=== PATIENT | male | born 1975 | race Caucasian/White ===

== ENCOUNTER 2020-04-02 08:34 | Outpatient (CLI) | payer OTHER, SELFPAY ==
--- NOTE | 2020-04-02 08:36 | ECG_ITS ---
Measurements Intervals [place] Rate: 48 P: 35 WA: 166 QRS: 8 QRSD: 112 T: -4 QT: 437 QTc: 393 Interpretive Statements SINUS BRADYCARDIA INTRAVENTRICULAR CONDUCTION DELAY EARLY PRECORDIAL R/S TRANSITION VOLTAGE CRITERIA FOR LVH BORDERLINE ST-T WAVE ABNORMALITY- INFERIOR LEADS ABNORMAL ECG Electronically Signed On 04-02-2020 9:04:00 CDT by Jose Rodriguez D.O.
[2020-04-02 09:16] LABS: Alanine Aminotransferase 64 U/L (4-50); Albumin Level 4.9 g/dL (3.5-5.1); Alkaline Phosphatase 57 U/L (38-126); Amylase 63 U/L (30-110); Aspartate Amino Transferase 50 U/L (17-59); Bilirubin,Total 0.6 mg/dL (0.2-1.3); Lipase 185 U/L (23-300)
== END 2020-04-02 08:35 | disposition home or self-care (01) ==
PROVIDERS: PCP Internal Medicine; Visit Provider Surgery
DX: Z01.818 Encounter for other preprocedural examination (principal); E78.00 Pure hypercholesterolemia, unspecified; K81.1 Chronic cholecystitis; R94.31 Abnormal electrocardiogram [ECG] [EKG]
CPT/HCPCS: 36415; 80076; 82150; 83690; 86850; 86900; 86901; 93005

== ENCOUNTER 2020-04-09 00:55 | Outpatient (CLI) | payer OTHER, SELFPAY ==
[2020-04-09 18:07] LABS: SARS-CoV-2 RNA PCR Negative
== END 2020-04-09 00:56 | disposition home or self-care (01) ==
LOC: ANHCOVIDDT 00:55
PROVIDERS: PCP Internal Medicine; Visit Provider Surgery
DX: Z01.818 Encounter for other preprocedural examination (principal); Z11.59 Encounter for screening for other viral diseases
CPT/HCPCS: 87635; C9803; U0003

== ENCOUNTER 2020-04-11 02:24 | Day surgery (SDC) | payer OTHER, SELFPAY ==
[2020-04-01 09:38] VITALS: BMI 38.0
[2020-04-11] VITALS (8 sets, daily range): BP systolic 104–136; BP diastolic 51–76; PULSE 44–58; RESP 12–20; TEMP 36.4; O2SAT 96–100
--- NOTE | 2020-04-11 08:36 | WPDHPUPDATE1 ---
History and Physical Update Update Date/Time: 04/11/20 08:36 History and Physical has been reviewed, including an updated exam of the patient. There are NO changes in the patient's condition. Risks, benefits, and alternatives have been discussed and questions answered. Patient agrees to proceed with procedure.
[2020-04-11] MEDS: LACTATED RINGERS 1,000 ML 30 ML IV CONT ×2 (08:40→10:30)
--- NOTE | 2020-04-11 08:50 | WPDANESEPPF ---
Anes - Initial Pre Proc Eval Procedure: Operation Date: 04/11/20 10:00 Proposed Procedures p Laparoscopic Cholecystectomy - Kingston Ervin MD Date/Time: 04/11/20 08:50 Surgeon: Kingston Ervin MD Pre Op Diagnosis: Chronic Cholecystitis Patient Data Age: 44 Gender: M Height: 5 ft 8 in Weight: 113.4 kg Allergies Allergy/AdvReac Type Severity Reaction Status Date / Time bee venom protein (honey bee) Allergy SEVERE Verified 04/01/20 09:38 SWELLING Home Medications Medication Instructions Recorded Confirmed Type rosuvastatin 5 mg sprinkle capsule 10 mg PO DAILY 03/17/20 04/11/20 History esomeprazole magnesium [Nexium] 20 mg PO DAILY 04/01/20 04/11/20 History Patient hx anesthesia problems: none Family hx anesthesia problems: hx of malignant hyperthermia PMFSH Past Medical History Medical History GERD (gastroesophageal reflux disease) High cholesterol AMISHA (obstructive sleep apnea) Surgical History Surgical History H/O lateral meniscus repair of left knee Family History Family History Father High cholesterol Mother Kidney stones Diabetes mellitus Sibling S/P cholecystectomy Other Malignant hyperthermia Social History Social History Smoking status: Former smoker Smokeless tobacco user: chewing tobacco Additional smoking assessment comments: QUIT 16 YEARS AGO- USED FOR 10 YEARS Alcohol intake: current Drinks per week: 4 Spiritual care concerns: No Anes - Eval Final PreProcedure Day of Procedure 04/11/20 08:50 Patient weight: obese Heart: regular rate and rhythm Lungs: clear to auscultation Airway: Mallampati scale class 1 Neurological: alert and oriented Last oral intake: >/= 8 hours ASA classification: III Emergent: no Anesthetic plan: proceed Anesthesia type and monitoring: general ETT and standard monitoring Informed Consent: The patient's anesthetic plan and its attendant risks and benefits were discussed with the patient/family/POA. Questions were solicited and answers provided to the satisfaction of the patient/family/POA.
[2020-04-11] MEDS: KETOROLAC 15 MG/ML VIAL (*BKC) IV PUSH (09:06)
[2020-04-11] MEDS: ceFAZolin 2 GM/D5W 50 ML 2 GM/50 ML BAG IVPB (09:11)
[2020-04-11] MEDS: BUPIVACAINE/EPINEPHRINE 0.5% 30 ML VIAL INFILTRATE (09:41)
--- NOTE | 2020-04-11 10:28 | P.OP_ITS ---
Procedure Note - Detailed Date of procedure: 04/11/20 Pre-op diagnosis: Chronic Cholecystitis Acalculous chronic cholecystitis Post-op diagnosis: same Procedure performed: Laparoscopic cholecystectomy Description of procedure: The patient was taken to surgery and induced into general anesthesia. The abdomen was prepped and draped. Trocars were placed in the usual fashion using 0.5% Marcaine with epinephrine and applied Medical optical trocars. A 5 millimeter camera was used. The gallbladder was decompressed with a laparoscopic aspirator. The cholecystotomy was closed with a Vicryl endo-loop. The gallbladder was retracted anterosuperiorly. Traction was placed on the infundibulum. The cystic duct and cystic artery were dissected out very clearly. The gallbladder was dissected off the liver at its lower 3rd. Critical view was achieved. We securely clipped and divided the cystic duct and cystic artery. The gallbladder was then further retracted so that the peritoneal attachments to the liver could be divided. Once the gallbladder was freed entirely, it was placed in an Endo-Catch bag and retrieved through the 10 11 epigastric trocar site. The epigastric trocar was then replaced. We reviewed the right upper quadrant. It was irrigated and suctioned. All looked good with no evidence of bleeding or bile leakage. We evacuated CO2 and removed the trocar sleeves. Skin wounds were closed with subcuticular 4 O Monocryl skin suture. The wounds were dressed with Exofin surgical adhesive. Patient was awakened and taken to recovery in good condition. Sponge and needle counts were correct x2. Anesthesia: GETA and local (0.5% Marcaine with epinephrine) Surgeon: Kingston Ervin MD Efficiency Analyst: Miriam ROBLERO Estimated blood loss (mL): 10 Drains: No Packing: No Pathology: yes (Gallbladder) Complications: None Condition: stable Disposition: PACU Findings: Mild chronic inflammation, no gallstones noted. No biliary ductal dilatation, no liver abnormalities.
--- NOTE | 2020-04-11 13:04 | SUR.PHASEII ---
1245; PT AWAKE AND ALERT. DENIES PAIN OR NAUSEA. STATES HE IS READY TO GO HOME. SPOUSE NOTIFIED.
== END 2020-04-11 13:04 | disposition home or self-care (01) ==
PROVIDERS: PCP Internal Medicine; Visit Provider Surgery
PROC: 0FT44ZZ Resection of Gallbladder, Percutaneous Endoscopic Approach (ICD-10-PCS; CPT 47562; principal; 2020-04-11 10:00)
DX: K81.1 Chronic cholecystitis (principal); K21.9 Gastro-esophageal reflux disease without esophagitis; E78.00 Pure hypercholesterolemia, unspecified; G47.33 Obstructive sleep apnea (adult) (pediatric); Z87.891 Personal history of nicotine dependence; E66.9 Obesity, unspecified; Z68.37 Body mass index [BMI] 37.0-37.9, adult
CPT/HCPCS: 47562; 88304; C1713; J0690; J1100; J1170; J1885; J2250; J2405; J2704; J2710; J3010; J7120

== ENCOUNTER 2022-08-02 00:47 | Day surgery (SDC) | payer OTHER, SELFPAY ==
[2022-07-21 13:58] VITALS: BMI 36.1
[2022-08-02 07:07] VITALS: BP 124/73; PULSE 55; RESP 18; TEMP 36.1; O2SAT 98
[2022-08-02] MEDS: LACTATED RINGERS 1,000 ML 150 ML IV CONT (07:22)
--- NOTE | 2022-08-02 07:26 | P.PNAN_ITS ---
Anes - Initial Pre Proc Eval Procedure: Operation Date: 08/02/22 08:15 Proposed Procedures p Screening Colonoscopy - Troy Juan MD Date/Time: 08/02/22 07:26 Surgeon: Troy Juan MD Pre Op Diagnosis: screening colonoscopy, fm hx of colon polyps Patient Data Age: 46 Gender: M Height: 1.75 m Weight: 109.8 kg Last Vital Signs Temp 36.1 C L 08/02/22 07:07 Pulse 55 L 08/02/22 07:07 Resp 18 08/02/22 07:07 BP 124/73 08/02/22 07:07 Pulse Ox 98 08/02/22 07:07 O2 Del Method Room Air 08/02/22 07:07 Allergies Allergy/AdvReac Type Severity Reaction Status Date / Time bee venom protein (honey bee) Allergy SEVERE Verified 08/02/22 07:06 SWELLING Home Medications Medication Instructions Recorded Confirmed Type esomeprazole magnesium 20 mg 20 mg PO DAILY 04/01/20 07/21/22 History capsule,delayed release (Nexium) rosuvastatin 10 mg tablet 10 mg PO DAILY 07/21/22 07/21/22 History Patient hx anesthesia problems: none Family hx anesthesia problems: none Results Review: All pre-operative results and documents have been reviewed as part of the pre- operative evaluation. [facility] Past Medical History Medical History Colonoscopy planned Family history of colonic polyps GERD (gastroesophageal reflux disease) High cholesterol IFG (impaired fasting glucose) AMISHA (obstructive sleep apnea) Vitamin B12 deficiency Vitamin D deficiency Surgical History Surgical History H/O lateral meniscus repair of left knee Hx laparoscopic cholecystectomy 04/11/20 Family History Family History Father High cholesterol Mother Kidney stones Diabetes mellitus Sibling S/P cholecystectomy Other Malignant hyperthermia Social History Social History Smoking packs per day: 0.5 Smoking cigarettes per day: 10.0 Years smoked: 3 Smoking pack-years: 1.50 Smoking status: Former smoker Tobacco type: cigarettes Smokeless tobacco user: chewing tobacco Additional smoking assessment comments: QUIT 16 YEARS AGO- USED FOR 10 YEARS Alcohol intake: current Drinks per week: 4 Substance use: never Substance use type: does not use Living arrangements: with family Spiritual care concerns: No Anes - Eval Final PreProcedure Day of Procedure 08/02/22 07:26 Patient weight: obese Heart: regular rate and rhythm Lungs: clear to auscultation Airway: Mallampati scale class 1 Neurological: alert and oriented ASA classification: III Emergent: no Anesthetic plan: proceed Anesthesia type and monitoring: general GIVS and standard monitoring Results Review: All pre-operative results and documents have been reviewed as part of the pre- operative evaluation. Informed Consent: The patient's anesthetic plan and its attendant risks and benefits were discussed with the patient/family/POA. Questions were solicited and answers provided to the satisfaction of the patient/family/POA.
--- NOTE | 2022-08-02 07:55 | PM.HPGS ---
History of Present Illness History of Present Illness Consent: Risks, benefits, and alternatives have been discussed and questions answered. Patient agrees to proceed with procedure. Chief complaint: screening colonoscopy, fm hx of colon polyps Narrative: Jose Rashid is a 46 year old male here for first screening colonoscopy Review of Systems Constitutional: Constitutional: Denies headache(s) and Denies weakness Eyes: Eyes: Denies blurry vision ENT: Reports Normal hearing present, Denies headache(s) and Denies neck pain Cardiovascular: Cardiovascular: Denies chest pain and Denies dyspnea Respiratory: Respiratory: Denies dyspnea Gastrointestinal: Gastrointestinal: Reports no additional gastrointestinal complaints Genitourinary: Genitourinary: Denies dysuria Musculoskeletal: Musculoskeletal: Denies neck pain Integumentary/Breasts: Skin/Breast: Denies dry skin Neurologic: Reports Normal hearing present, Denies headache(s) and Denies weakness Psychiatric: Psychiatric: Denies anxiety Endocrine: Endocrine: Denies change in body appearance Hematologic/Lymphatic: Hematologic/Lymphatic: Denies easy bleeding Allergic/Immunologic: Allergic/Immunologic: Denies urticaria PMF Past Medical History Medical History (Updated 08/02/22 @ 07:56 by Troy Juan MD) Colon cancer screening Colonoscopy planned Family history of colonic polyps GERD (gastroesophageal reflux disease) High cholesterol IFG (impaired fasting glucose) AMISHA (obstructive sleep apnea) Vitamin B12 deficiency Vitamin D deficiency Surgical History Surgical History H/O lateral meniscus repair of left knee Hx laparoscopic cholecystectomy 04/11/20 Family History Family History Father High cholesterol Mother Kidney stones Diabetes mellitus Sibling S/P cholecystectomy Other Malignant hyperthermia Social History Social History Smoking packs per day: 0.5 Smoking cigarettes per day: 10.0 Years smoked: 3 Smoking pack-years: 1.50 Smoking status: Former smoker Tobacco type: cigarettes Smokeless tobacco user: chewing tobacco Additional smoking assessment comments: QUIT 16 YEARS AGO- USED FOR 10 YEARS Alcohol intake: current Drinks per week: 4 Substance use: never Substance use type: does not use Living arrangements: with family Spiritual care concerns: No Meds Home Medications and Allergies Home Medications Medication Instructions Recorded Confirmed Type esomeprazole magnesium 20 mg 20 mg PO DAILY 04/01/20 07/21/22 History capsule,delayed release (Nexium) rosuvastatin 10 mg tablet 10 mg PO DAILY 07/21/22 07/21/22 History Allergies Allergy/AdvReac Type Severity Reaction Status Date / Time bee venom protein (honey bee) Allergy SEVERE Verified 08/02/22 07:06 SWELLING Vital Signs Vital Signs - 24 hr 08/02/22 07:07 Temperature 97 F L Pulse Rate 55 L Respiratory Rate 18 Blood Pressure 124/73 Pulse Oximetry 98 Oxygen Delivery Room Air Exam Const: General: comfortable and no acute distress HENMT: Face/Nose/Sinus: Normal nares present Eyes: General: appearance normal, both eyes and all related structures Neck: Neck: no JVD Resp: Auscultation: clear to auscultation bilaterally Cardio: Rate: regular rate Rhythm: regular rhythm GI: Inspection: non-distended GI Palp: Yes Soft to palpation Skin: General skin exam: normal color Neuro: General: gait normal Speech: normal speech Extrem: General: normal to inspection Psych: Mental Status: mental status grossly normal Assessment and Plan Assessment and plan (1) Colon cancer screening: Code(s): Z12.11 - Encounter for screening for malignant neoplasm of colon Status: Acute Assessment and Plan: colonoscopy
[2022-08-02 08:18] VITALS: BP 119/71; PULSE 57; RESP 18; O2SAT 100
[2022-08-02 08:28] VITALS: BP 131/82; PULSE 53; RESP 20; O2SAT 98
[2022-08-02 08:38] VITALS: BP 134/75; PULSE 49; RESP 15; O2SAT 100
== END 2022-08-02 08:48 | disposition home or self-care (01) ==
PROVIDERS: PCP Family Medicine; Visit Provider Internal Medicine Gastroenterology
PROC: 0DJD8ZZ Inspection of Lower Intestinal Tract, Via Natural or Artificial Opening Endoscopic (ICD-10-PCS; CPT 45378; principal; 2022-08-02 08:15)
DX: Z12.11 Encounter for screening for malignant neoplasm of colon (principal); Z83.71 Family history of colonic polyps; E78.00 Pure hypercholesterolemia, unspecified; K21.9 Gastro-esophageal reflux disease without esophagitis; Z87.891 Personal history of nicotine dependence; E66.9 Obesity, unspecified; Z68.35 Body mass index [BMI] 35.0-35.9, adult
CPT/HCPCS: 45378; J2704; J7120

== ENCOUNTER 2024-01-26 13:15 | Outpatient (RCR) | payer OTHER, SELFPAY ==
--- NOTE | 2024-01-26 14:11 | PTOPEVAL1 ---
Assessment and note entered by Misty Mayer, PT Evaluation Information Assessment Status Evaluation Diagnosis pain in right knee, osteoarthritis right knee Onset ~ 1 year Subjective Information Pt states right knee feels like a torn meniscus he had in the left knee 2006-. Was repaired. Right knee started bothering him a little over a year ago and progressively got worse. 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 Pt reports prior to a year ago would hike and jog, vacation to [place] went hiking for multiple days Is currently limited to mowing because of knee pain 6 weeks ago received steroid shot in the knee without improvement Reported Pain Level Pain Score 0: Self Report Assessment PT Clinical Summary Pt presents with complaints of right knee pain that began about a year ago without traumatic event and progressively worsened. Pt received steroid shot approx 6 weeks ago without reduction of discomfort. Pt demo's fair alignment in standing with mild genu recurvatum krishna, good strength, good flexibility, mildly limited ROM right knee due to pain, no swelling, mild tenderness to medial joint line and multiple (+) special tests suggestive of meniscus injury. Currently pt demo's minimal deficits which therapy may improve slightly. However pt would greatly benefit from further imaging to confirm or deny anatomical deficits to discern most effective plan of care to improve patient's discomfort and function for high level activities. Plan of Care Interventions Electrical Stimulation,Hot Pack/Cold Pack,Manual Therapy,Neuro Re-education,Therapeutic Activities, Therapeutic Exercise,Self-Care/Home Management, Ultrasound PT Services Indicated Yes Treatment Frequency and 10 visits as needed over 90 days Duration These treatments will address the objective and functional deficits as defined above. The patient will be advanced safely and appropriately in order for the patient to progress towards his/her prior level of function. Additional exercis
--- NOTE | 2024-01-26 14:11 | OPREHPOC ---
Outpatient Therapy Plan of Care This is a Multidisciplinary Plan of Care that may contain components documented by all disciplines (PT, OT, and ST.) PT Goal 1 Goal Pt will be independent in HEP Pt will verbalize understanding of diagnosis and prognosis Target Visit 5 PT Problem 2 PT Problem #2 Pain PT Goal 1 Goal Pt will report greatest pain level at 3/10 or less to improve ADLs and activities Target Visit 5 PT Goal 2 Goal Pt will report resolution of pain to return to PLOF Target Visit 10 PT Problem 3 PT Problem #3 Impaired Range of Motion PT Goal 1 Goal Pt will demo equal knee flexion RLE to LLE without pain Target Visit 10
--- NOTE | 2024-02-24 13:05 | PCPTNOTE ---
Admitting Provider: Attending Provider: Devante Nettles MD Patient:Jose Rashid Date of :1975 Patient has not returned for any further treatments since 01/26/2024, therefore he will be discharged at this time. Patient?s initial visit was on 01/26/2024 13:15 and he had a total of 1 visits. At the time it was found he most likely had a meniscal tear that therapy would be minimally effective for. His plan of care had been left open in case he felt the need to return prior to intervention. However as he has not returned, we are discharging from skilled services. Thank you for referring this patient to [facility]. Please review, sign, date and return this discharge summary DAYAN. I have been updated about the patient's current status and I agree with discharge from the above service at this time. Referring Physician Date
== END 2024-02-24 14:03 | disposition home or self-care (01) ==
LOC: ANHHIPT 13:15
PROVIDERS: PCP Family Medicine; Visit Provider Family Medicine
DX: M17.11 Unilateral primary osteoarthritis, right knee (principal)
CPT/HCPCS: 97161

== ENCOUNTER 2024-05-14 07:44 | Outpatient (CLI) | payer OTHER, SELFPAY ==
--- NOTE | ~2024-05-14 | MR_ITS ---
EXAMINATION: MR knee RT wo con DATE: 05/14/2024 08:11 INDICATION: Right knee pain. TECHNIQUE: Magnetic resonance imaging (MRI) of the right knee was performed without intravenous contr ast. Sequences included axial PD-weighted FS FSE, coronal PD-weighted FSE and PD-weighted FS FSE, sag ittal PD-weighted FSE, and sagittal T2-weighted FS FSE. COMPARISON: Right knee radiographs 01/17/2024 FINDINGS: Medial compartment: There is a horizontal tear of body and posterior horn of medial meniscus. There is cartilage surface irregularity of tibial condyle and femoral condyle. Lateral compartment: Lateral meniscus is normal. Lateral compartment cartilage is normal. Patellofemoral compartment: There is cartilage surface irregularity of patella and trochlea. Ligaments and tendons: The anterior and posterior cruciate ligaments are normal. Medial collateral ligament is normal. There are changes of prior sprain of fibular collateral ligament characterized by thickening and increased signal intensity proximally. There is mild patellar tendinopathy. Fluid: There is a small knee joint effusion. There is mild prepatellar and superficial infrapatellar bursiti s. There is trace fluid in a Pathak's cyst. IMPRESSION: 1. Mild chondrosis of medial and patellofemoral compartments. 2. Tear of medial meniscus. 3. Small knee joint effusion. Reviewed, dictated and finalized at location A.
== END 2024-05-14 07:45 ==
LOC: MICIMG 07:45
PROVIDERS: PCP Family Medicine; Visit Provider Family Medicine
DX: M94.261 Chondromalacia, right knee (principal); M25.461 Effusion, right knee; S83.241A Other tear of medial meniscus, current injury, right knee, initial encounter; X58.XXXA Exposure to other specified factors, initial encounter
CPT/HCPCS: 73721

== ENCOUNTER 2024-07-10 09:15 | Outpatient (CLI) | payer OTHER, SELFPAY ==
--- NOTE | 2024-07-10 09:26 | ECG_ITS ---
Test Date: 2024-07-10 09:30:44 Measurements Intervals [place] Rate: 64 P: 26 FL: 186 QRS: 4 QRSD: 96 T: -11 QT: 402 QTc: 417 Interpretive Statements SINUS RHYTHM NORMAL ELECTROCARDIOGRAM No previous ECG available for comparison Electronically Signed On 07-11-2024 06:58:25 CDT by Carlton Stinson M.D.
== END 2024-07-10 09:16 | disposition home or self-care (01) ==
LOC: ANHSURGERY 09:20
PROVIDERS: PCP Family Medicine; Visit Provider Orthopaedic Surgery
DX: Z01.810 Encounter for preprocedural cardiovascular examination (principal); E78.00 Pure hypercholesterolemia, unspecified
CPT/HCPCS: 93005

== ENCOUNTER 2024-07-16 00:29 | Day surgery (SDC) | payer OTHER, SELFPAY ==
[2024-07-06 13:10] VITALS: BMI 35.8
--- NOTE | 2024-07-06 13:17 | PC.NURSE ---
Report to the Outpatient Waiting Room, entrance under the green pavilion located off [facility], at time _1300_ on date _07/16/24_. Planned Procedure Time: _1500_.? Time changes happen often and if your time is changed the preop area will call you the afternoon before. - You and your visitor will be asked to self-screen and do not enter if you have any COVID symptoms. Please call surgeon if you need to reschedule. - A mask is optional within the hospital at this time. Patients may have clear liquids (water, carbonated beverages, clear teas, apple juice) until 3 hours prior to surgery with a maximum of 20 ounces. - No food from midnight until time of surgery and no smoking - Infants may have breast milk until 4 hours before surgery, infant formula 6 hours prior to surgery. - Children will be allowed to drink immediately following surgery.? If applicable, please bring a bottle or sippy cup to assist with drinking. Juice, water, soda, and popsicles are readily available.? For infants on formula, please bring formula the day of surgery.? Pacifiers are allowed. Take only the following medications with a SIP of water on the morning of surgery: NONE DO NOT STOP ANY OF YOUR OTHER PRESCRIPTION MEDICATIONS PRIOR TO SURGERY EXCEPT THE FOLLOWING Medications to discontinue per physician PROBIOTIC THREE DAYS PRIOR TO SURGERY, STOP SEMAGLUTIDE NOW__ Date to take last dose Please no make-up, nail austrian, hairspray, perfume, deodorant, or body powder the day of surgery.? No jewelry (including any body piercings) or valuables the day of surgery, leave them at home.? Please take a shower or bath the night before, or the morning of, surgery with an antibacterial soap.? Wear comfortable, loose fitting clothing.? Children are encouraged to wear pajamas. - Jewelry must be removed prior to entering the operating room.? Rings and piercings that are not removed may be cut off. - The hospital will not accept responsibility for valuables.? - Please leave all valuables, including medications, at home the day of surgery. If you are going home after surgery, a licensed paratransit driver must drive you home.? - NO public transportation without another adult if you receive anesthesia. - We recommend that an adult stay with you for 24 hours following discharge. - We also recommend that you do not drive, make important decision, drink alcoholic beverages, or take any drugs that were not prescribed by your health care provider for at least 24 hours after your discharge time. For Pediatric surgeries, we recommend two adults accompany the child home. Follow any additional instructions given to you from your surgeon. Telephone instructions given to PATIENT_and asked if any additional questions and then verbalized understanding. Patient advised to call surgeon office or pre surgery nurse liaison [phone] if any additional questions.
[2024-07-16] VITALS (11 sets, daily range): BP systolic 86–159; BP diastolic 48–85; PULSE 54–76; RESP 14–20; TEMP 36.4–36.6; O2SAT 95–100
--- NOTE | 2024-07-16 11:40 | WPDHPUPDATE1 ---
History and Physical Update Update Date/Time: 07/16/24 11:40 History and Physical has been reviewed, including an updated exam of the patient. There are NO changes in the patient's condition. Risks, benefits, and alternatives have been discussed and questions answered. Patient agrees to proceed with procedure.
[2024-07-16] MEDS: KETOROLAC 15 MG/ML VIAL (*BKC) IV PUSH (13:40)
[2024-07-16] MEDS: ACETAMINOPHEN 500 MG TABLET 1000 MG PO (13:40)
[2024-07-16] MEDS: LACTATED RINGERS 1,000 ML 30 ML IV CONT ×2 (13:40→16:04)
--- NOTE | 2024-07-16 14:06 | P.PNAN_ITS ---
Anes - Initial Pre Proc Eval Procedure: Operation Date: 07/16/24 15:00 Proposed Procedures p Right Knee Arthroscopic Partial Medial Meniscectomy - Casa Conrad MD Date/Time: 07/16/24 14:06 Surgeon: Casa Conrad MD Pre Op Diagnosis: Right Knee Meniscal Tear Patient Data Age: 48 Gender: M Height: 1.75 m Weight: 110.2 kg Last Vital Signs Temp 36.6 C 07/16/24 13:40 Pulse 64 07/16/24 13:40 Resp 14 07/16/24 13:40 BP 159/78 H 07/16/24 13:40 Pulse Ox 99 07/16/24 13:40 O2 Del Method Room Air 07/16/24 13:40 Allergies Allergy/AdvReac Type Severity Reaction Status Date / Time bee venom protein (honey bee) Allergy SEVERE Verified 07/04/24 14:56 SWELLING Home Medications Medication Instructions Recorded Confirmed Type semaglutide 1 mg/dose (4 mg/3 mL) 1 mg (0.75 mL) subcut WEEKLY #3 mL 10/26/23 07/06/24 Rx subcutaneous pen injector rosuvastatin 10 mg tablet See Rx Instructions .Route 03/26/24 07/06/24 Rx .COMPLEX #90 tabs lactobacillus combination no.8 3 1 cell PO DAILY 07/06/24 07/06/24 History billion cell capsule Patient hx anesthesia problems: none Family hx anesthesia problems: none Results Review: All pre-operative results and documents have been reviewed as part of the pre- operative evaluation. [facility] Past Medical History Medical History Annual physical exam Chronic cholecystitis Family history of colonic polyps GERD (gastroesophageal reflux disease) High cholesterol IFG (impaired fasting glucose) Left lateral epicondylitis AMISHA (obstructive sleep apnea) Osteoarthritis of right knee Right knee pain Screening for prostate cancer Vitamin B12 deficiency Vitamin D deficiency Surgical History Surgical History H/O lateral meniscus repair of left knee Hx laparoscopic cholecystectomy 04/11/20 Family History Family History Father High cholesterol Mother Kidney stones Diabetes mellitus Sibling S/P cholecystectomy Other Malignant hyperthermia Social History Social History Smoking packs per day: 0.5 Smoking cigarettes per day: 10.0 Years smoked: 6 Smoking pack-years: 3.00 Smoking status: Former smoker Tobacco type: cigarettes Smokeless tobacco user: chewing tobacco Additional smoking assessment comments: 2005- CAN OF CHEW PER DAY Alcohol intake: current Drinks per week: 6 Substance use: never Substance use type: does not use Living arrangements: with family Spiritual care concerns: No Anes - Eval Final PreProcedure Day of Procedure 07/16/24 14:06 Patient weight: obese Heart: regular rate and rhythm Lungs: clear to auscultation Airway: Mallampati scale class II Neurological: alert and oriented Last oral intake: >/= 8 hours ASA classification: III Emergent: no Anesthetic plan: proceed Anesthesia type and monitoring: general GIVS and standard monitoring Results Review: All pre-operative results and documents have been reviewed as part of the pre- operative evaluation. Informed Consent: The patient's anesthetic plan and its attendant risks and benefits were discussed with the patient/family/POA. Questions were solicited and answers provided to the satisfaction of the patient/family/POA.
[2024-07-16] MEDS: ceFAZolin 2 GM/D5W 50 ML 2 GM/50 ML BAG IVPB (14:45)
[2024-07-16] MEDS: BUPIVACAINE/EPINEPHRINE 0.5% 50 ML VIAL 20 ML INFILTRATE (15:23)
--- NOTE | 2024-07-16 15:47 | W.PM.PROC2 ---
Procedure Note - Detailed Date of Procedure 07/16/24 Pre-op Diagnosis Right Knee Medial Meniscal Tear Post-op Diagnosis Same Procedure Performed Arthroscopic partial medial meniscectomy, right knee. Surgeon Casa Conrad MD Anesthesia General Findings Complex posterior medial tear. Horizontal cleavage component preserved as able. Medial femur chondromalacia grade 1, medial tibia grade 0. Lateral femur chondromalacia grade 0, lateral tibia grade 0. Patellar grade 0, trochlea grade 0. Description of Procedure The patient was identified and the surgical site confirmed and signed in the preoperative holding area. Antibiotics were started per protocol, and the patient was brought to the operative room and transferred to the OR table. A general anesthetic was administered. Supine position with the operative lower extremity position in the leg deng after placement of a well padded tourniquet. The leg support was lowered and the contralateral limb was supported with a soft bolster. The knee was prepped and draped in the usual sterile fashion. A time-out was performed. The portal sites were marked and infiltrated with 0.5% Marcaine 20 mL. The limb was exsanguinated and the tourniquet inflated to 300 mL Hg. Standard inferolateral and inferomedial portals were established. Inflow was obtained with the saline pump. The camera was introduced. Diagnostic inspection of the joint was accomplished. The meniscus was debrided with the arthroscopic shaver and punches until stable. The radiofrequency probe was also used for further d?bridement. The arthroscopic instruments were removed. The tourniquet released and wounds closed with subcutaneous 4-0 Monocryl absorbable suture. Steri strips and a sterile dressing were applied. A light elastic wrap was placed. The patient was extubated and brought to the recovery room in stable condition. Estimated Blood Loss 5 Drains No Complications No immediate complications Condition Stable Disposition PACU [facility] Billing Surgery - Charge Forward: Surgery Billing
[2024-07-16] MEDS: oxyCODONE HCL (*CRX) 5 MG TAB IR PO (17:00)
== END 2024-07-16 17:52 | disposition home or self-care (01) ==
PROVIDERS: PCP Family Medicine; Visit Provider Orthopaedic Surgery
PROC: (CPT 29870; principal; 2024-07-16 15:00)
DX: S83.231A Complex tear of medial meniscus, current injury, right knee, initial encounter (principal); M94.261 Chondromalacia, right knee; K21.9 Gastro-esophageal reflux disease without esophagitis; K81.1 Chronic cholecystitis; E78.00 Pure hypercholesterolemia, unspecified; G47.33 Obstructive sleep apnea (adult) (pediatric); M17.11 Unilateral primary osteoarthritis, right knee; E53.8 Deficiency of other specified B group vitamins; E55.9 Vitamin D deficiency, unspecified; E66.9 Obesity, unspecified; Z68.35 Body mass index [BMI] 35.0-35.9, adult; Z79.85 Long-term (current) use of injectable non-insulin antidiabetic drugs; Z98.890 Other specified postprocedural states; Z90.49 Acquired absence of other specified parts of digestive tract; Z87.891 Personal history of nicotine dependence; Z83.719 Family history of colon polyps, unspecified; Z84.89 Family history of other specified conditions; X58.XXXA Exposure to other specified factors, initial encounter
CPT/HCPCS: 29881; 93005; A9270; J0690; J1100; J1171; J1885; J2003; J2250; J2405; J2704; J3010; J7120

== ENCOUNTER 2024-08-16 10:15 | Outpatient (RCR) | payer OTHER, SELFPAY ==
--- NOTE | 2024-07-24 14:38 | PTOPEVAL1 ---
Assessment and note entered by Sameera Herrera, PT Evaluation Information Assessment Status Evaluation Diagnosis z48.89 ICD-10 Condition Codes (PT) M25.561,Difficulty Walking R26.2,R26.9,Weakness R53.1,Z47.89 Onset many years ago Subjective Information Pt reports has been experiencing worsening of R knee pain for approx 10 years and finally decided to see the MD earlier this year, he received cortisone shot to the knee and was referred to therapy. Upon PT evaluation, pt was referred to Ortho secondary to a meniscal tear. Pt underwent surgery last Tuesday and reports feels increased pain and stiffness the past few days and had difficulty walking. He is currently using a crutch that his used from before to offload weight to the R knee. states uses Ibuprofen and ice to relieve pain at this time. Pt wants to be able to stand and walk normally, and go back to work without pain and dicomfort. Plan of Care Interventions Electrical Stimulation,Gait Training,Hot Pack/Cold Pack,Manual Therapy,Neuro Re-education,Patient/ Caregiver Education,Therapeutic Activities, Therapeutic Exercise,Ultrasound,Other Other Interventions Angelica, MARIALUISA PT Services Indicated Yes Treatment Frequency and 2x/wk x 12 visits Duration These treatments will address the objective and functional deficits as defined above. The patient will be advanced safely and appropriately in order for the patient to progress towards his/her prior level of function. Additional exercises will be introduced and as well as a comprehensive home exercise program upon discharge, if needed, ?to ensure carryover of functional gains achieved in the clinic. This treatment plan has been reviewed and agreement upon by the patient.
--- NOTE | 2024-07-24 14:38 | OPREHPOC ---
Outpatient Therapy Plan of Care This is a Multidisciplinary Plan of Care that may contain components documented by all disciplines (PT, OT, and ST.) PT Problem 1 PT Problem #1 Knowledge Deficit PT Goal 1 Goal / Goal Update 1.Pt will demo good understanding of diagnosis and prognosis. 2. Pt will perform HEPs to improve knee strength and stability, flexibility indep Target Visit 12 PT Problem 2 PT Problem #2 Pain PT Goal 1 Goal / Goal Update Pt will report a pain score of 2-3/10 at worst when standing and ambulating. Target Visit 10 PT Problem 3 PT Problem #3 Impaired Range of Motion PT Goal 1 Goal / Goal Update 1. Pt will demo 0-100 deg or more of passive ROM to L knee within 6-8 visits to allow improved joint mobility. 2. Pt will demo 0-115 deg or more active ROM to L knee without increased pain or discomfort at end of therapy visits to improve safety with stairs ambulation and transfers transition. Target Visit 18 PT Problem 4 PT Problem #4 Impaired Strength PT Goal 1 Goal / Goal Update Pt will demo 5/5 strength to the muscles around L knee. Target Visit 20 PT Problem 5 PT Problem #5 Impaired Functional Mobil PT Goal 1 Goal / Goal Update 1. Pt will demo normalized gait pattern with good LLE gait mechanics indep without using assistive device on various surfaces and stairs. 2. Pt will demo a score of 60 or more on LEFs indicating minimal disability. 3. Pt will demo single leg standing for 15 seconds or more each LE without discomfort. Target Visit 20
--- NOTE | 2024-08-16 11:01 | PTOPDC ---
Assessment and note entered by Sameera Herrera, PT Discharge Information Assessment Status Discharge Diagnosis z48.89 ICD-10 Condition Codes (PT) M25.561,Difficulty Walking R26.2,R26.9,Weakness R53.1,Z47.89 Onset many years ago Subjective Information Pt reports he is not feeling any pain and is back to normal motions. Reported Pain Level Pain Score 0: Self Report Assessment PT Clinical Summary PT received a total of 6 visits and has met all of his established goals. He demos full ROM without pain or discomfort, excellent progress and improvement is noted to his mobility and strength from eval to this date. He reports compliant with HEPs and is planning to return to work out program pre-surgery. Skilled PT not necessary at this time. Plan of Care PT Services Indicated No
== END 2024-08-17 10:56 | disposition home or self-care (01) ==
LOC: ANHHIPT 10:15
PROVIDERS: PCP Family Medicine; Visit Provider Orthopaedic Surgery
DX: Z48.89 Encounter for other specified surgical aftercare (principal); M25.561 Pain in right knee; R26.2 Difficulty in walking, not elsewhere classified; R26.9 Unspecified abnormalities of gait and mobility; R53.1 Weakness
CPT/HCPCS: 97014; 97016; 97110; 97116; 97140; 97161; 97530; 97750; G0283

== ENCOUNTER 2024-12-11 10:09 | Outpatient (CLI) | payer OTHER, SELFPAY ==
--- NOTE | ~2024-12-11 | MR_ITS ---
EXAMINATION: MR elbow RT wo con DATE: 12/11/2024 10:37 INDICATION: Right elbow joint effusion. Right elbow pain. TECHNIQUE: Magnetic resonance imaging (MRI) of the right elbow was performed without intravenous cont rast. Sequences included coronal, axial, and sagittal PD-weighted FS FSE and coronal, axial, and sagi ttal PD-weighted FSE. COMPARISON: Right elbow radiographs 11/23/2024 FINDINGS: Osseous/other: Alignment is normal. No fracture. Bone marrow signal intensity is normal. The cartilage is normal. Tendons: The biceps tendon and brachialis tendon are normal. There is moderate tendinopathy of the common flex or tendon at medial humeral epicondyle. There is moderate tendinopathy of the common extensor tendon at lateral humeral epicondyle. There is a skin marker near this area. Ligaments: Radial collateral ligament, lateral ulnar collateral ligament, and ulnar collateral ligament are norm al. Cubital tunnel: Ulnar nerve is normal. Fluid: There is no elbow joint effusion. IMPRESSION: 1. Moderate tendinopathy of the common flexor tendon (medial epicondylitis) and common extensor tendo n (lateral epicondylitis). No tear. Reviewed, dictated and finalized at location B. IMPRESSION: 1. Moderate tendinopathy of the common flexor tendon (medial epicondylitis) and common extensor tendon (lateral epicondylitis). No tear.
== END 2024-12-11 10:10 | disposition home or self-care (01) ==
LOC: MICIMG 10:10
PROVIDERS: PCP Physician Assistant Medical; Visit Provider Orthopaedic Surgery
DX: M25.421 Effusion, right elbow (principal)
CPT/HCPCS: 73221

== ENCOUNTER 2025-02-15 15:00 | Outpatient (RCR) | payer OTHER, SELFPAY ==
--- NOTE | 2024-12-21 15:52 | OTOPEVAL1 ---
Assessment and note entered by ALEX Sutton/Nikolas, CHT OT Evaluation Information 12/21/24 Assessment Status Evaluation Diagnosis M77.01 Medial epicondylitis; M77.11 Lateral epicondylitis - right elbow ICD-10 Condition Codes (OT) Pain in right elbow M25.521 Subjective Information Patient reports right elbow pain for about 1.5-2 years. He is right handed. He also reports intermittent paresthesia in the ulnar 3 digits. Reports paresthesia with computer work as well as sometimes when sleeping. 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 He reports elbow pain is medially and laterally. Received an injection to both areas, medially didn't seem to do much, laterally worked for some time, but the pain returned. Patient reports if he knows he's going to have a more active day he takes some preventative medication and ices afterwards. 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 Pain gets as high as 7/10 on a bad day. Reported Pain Level Pain Score 0: Self Report Additional Pain Score Comments No pain at rest. With active ROM of the wrist and fingers, the elbow pain increases to 2/10. With gripping the dynamometer, the elbow pain increases to 5/10. Assessment OT Clinical Summary Patient referred to OT with diagnosis of right medial and lateral epicondylitis, which has restricted his ability to complete ADLs and work tasks due to pain, reports of weakness, and intermittent paresthesia. He presents with medial and lateral elbow pain, reduced gang worker strength, and pain with all wrist motion. Unable to recreate paresthesia today with elbow flexion test and he reports no tenderness with palpation to the ulnar nerve in the cubital tunnel. Paresthesia also includes the middle finger, which could be indicative of a more proximal compression. Educated on workstation ergonomics, use of ice/ heat, self massage, stretching, and strengthening. Continued follow up indicated for continued use of modalities, manual therapy/IASTM, and progressive functional strengthening to facilitate improved functional use of his right/dominant UE. Plan of Care Interventions Therapeutic Exercise,Manual Therapy,Therapeutic Activities,Hot Pack/Cold Pack,Ultrasound,Paraffin OT Services Indicated Yes Treatment Frequency and 1x/week for 6 visits Duration These treatments will address the objective and functional deficits as defined above. The patient will be advanced safely and appropriately in order for the patient to progress towards his/her prior level of function. Additional exercises will be introduced and as well as a comprehensive home exercise program upon discharge, if needed, ?to ensure carryover of functional gains achieved in the clinic. This treatment plan has been reviewed and agreement upon by the patient.
--- NOTE | 2024-12-21 15:52 | OPREHPOC ---
Outpatient Therapy Plan of Care This is a Multidisciplinary Plan of Care that may contain components documented by all disciplines (PT, OT, and ST.) OT Problem 1 OT Problem #1 Knowledge Deficit OT Goal 1 Goal / Goal Update Patient to be independent with instructed materials. Target Visit 6 OT Problem 2 OT Problem #2 Pain OT Goal 1 Goal / Goal Update Patient to report reduced (R) elbow pain to 2/10 or less with ADLs/functional use. Target Visit 6 OT Problem 3 OT Problem #3 Impaired Flexibility OT Goal 1 Goal / Goal Update Patient to be able to move the (R) wrist through full ROM with the elbow extended and fingers extended without pain. 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 and demonstrate no pain with retirement assistant strength assessment. Target Visit 6 OT Goal 2 Goal / Goal Update Patient to improve (R) wrist strength to be able to progress HEP to sets of 20 reps with 5 lbs. without pain. Target Visit 6
--- NOTE | 2025-03-28 10:51 | OTOPDC ---
Assessment and note entered by Matthew Demarco, ALEX/Nikolas, CHT D/C Notification Diagnosis M77.01 Medial epicondylitis; M77.11 Lateral epicondylitis - right elbow ICD-10 Condition Codes (OT) Pain in right elbow M25.521 OT Clinical Summary Patient referred to OT with diagnosis of right medial and lateral epicondylitis. He attended the initial evaluation on 12/21 and 4 subsequent treatment sessions. He has not shown for therapy since 01/21. We reached out today and he reports his elbow is feeling better and he does not feel the need to return for therapy. D/C OT at this time. OT Services Indicated No
== END 2025-03-21 23:59 | disposition home or self-care (01) ==
LOC: ANHHIOT 15:00
PROVIDERS: PCP Physician Assistant Medical; Visit Provider Orthopaedic Surgery
DX: M77.01 Medial epicondylitis, right elbow (principal); M77.11 Lateral epicondylitis, right elbow; M25.521 Pain in right elbow
CPT/HCPCS: 97018; 97035; 97110; 97140; 97165